=== PATIENT | female | born 1950 | race Caucasian/White ===

== ENCOUNTER 2017-04-29 11:00 | Inpatient (IN) | payer OTHER ==
[2017-04-29 11:06] VITALS: BMI 19.5
--- NOTE | 2017-04-29 12:59 | ED PDOC ---
Arrival/HPI - General Chief Complaint: Chest Pain Time Seen by Provider: 04/29/17 11:20 Historian: Patient - History of Present Illness Narrative History of Present Illness (Text): 04/29/17 12:58 A 67 year old female presents from [facility] emergency department after two sets of troponin were found to be elevated. Patient reports that initially went to [facility] emergency department for epigastric pain. Patient has a known history of gallstones. Patient had an US done, which showed gallstones. Patient reports having stress test and echo done 5 months ago, which states was normal. Patient denies any chest pain, shortness of breath or any other complaints at this time. Time/Duration: Other (today) Symptom Onset: Sudden Symptom Course: Unchanged Activities at Onset: Rest Past Medical History - Provider Review Nursing Documentation Reviewed: Yes - Infectious Disease Hx of Infectious Diseases: None - Tetanus Immunization Tetanus Immunization: Unknown - Reproductive Menopause: Yes - Cardiac Hx Cardiac Arrhythmia: (palpitations) Hx Hypertension: Yes - Pulmonary Hx Respiratory Disorders: No - Neurological Hx Neurological Disorder: No - HEENT Hx HEENT Disorder: No - Renal Hx Renal Disorder: No - Endocrine/Metabolic Hx Endocrine Disorders: No - Hematological/Oncological Hx Blood Transfusions: No Hx Blood Transfusion Reaction: No - Integumentary Hx Dermatological Disorder: No - Musculoskeletal/Rheumatological Hx Musculoskeletal Disorders: No - Gastrointestinal Hx Gastrointestinal Disorders: No - Genitourinary/Gynecological Hx Genitourinary Disorders: No - Psychiatric Hx Depression: No Hx Emotional Abuse: No Hx Physical Abuse: No Hx Substance Use: No - Past Surgical History Past Surgical History: No Previous - Anesthesia Hx Anesthesia Reactions: No Hx Malignant Hyperthermia: No - Suicidal Assessment Feels Threatened In Home Enviroment: No Family/Social History - Physician Review Nursing Documentation Reviewed: Yes Family/Social History: No Known Family HX Smoking Status: Never Smoked Hx Alcohol Use: No Hx Substance Use: No Hx Substance Use Treatment: No Allergies/Home Meds Allergies/Adverse Reactions: Allergies No Known Allergies Allergy (Verified 04/29/17 16:17) Home Medications: Home Meds Medication Instructions Recorded Confirmed Simvastatin [Zocor] 40 mg PO DAILY 05/27/16 04/29/17 Review of Systems - Physician Review All systems were reviewed & negative as marked: Yes - Review of Systems Respiratory: absent: SOB Cardiovascular: absent: Chest Pain Physical Exam Vital Signs Reviewed: Yes Vital Signs Temp Pulse Resp BP Pulse Ox 04/29/17 18:27 98.4 F 84 16 122/74 99 04/29/17 17:55 98.1 F 90 16 120/72 99 04/29/17 16:00 97.8 F 97 H 16 120/66 100 04/29/17 12:48 90 16 142/83 99 04/29/17 11:01 98.6 F 94 H 20 150/84 97 Temperature: Afebrile Blood Pressure: Normal Pulse: Regular Respiratory Rate: Normal Appearance: Positive for: Well-Appearing, Non-Toxic, Comfortable Pain Distress: None Mental Status: Positive for: Alert and Oriented X 3 - Systems Exam Head: Present: Atraumatic, Normocephalic Pupils: Present: PERRL Extroacular Muscles: Present: EOMI Conjunctiva: Present: Normal Mouth: Present: Moist Mucous Membranes Neck: Present: Normal Range of Motion Respiratory/Chest: Present: Clear to Auscultation, Good Air Exchange. No: Respiratory Distress, Accessory Muscle Use Cardiovascular: Present: Regular Rate and Rhythm, Normal S1, S2. No: Murmurs Abdomen: Present: Normal Bowel Sounds. No: Tenderness, Distention, Peritoneal Signs Back: Present: Normal Inspection Upper Extremity: Present: Normal Inspection. No: Cyanosis, Edema Lower Extremity: Present: Normal Inspection. No: Edema Neurological: Present: GCS=15, CN II-XII Intact, Speech Normal Skin: Present: Warm, Dry, Normal Color. No: Rashes Psychiatric: Present: Alert, Oriented x 3, Normal Insight, Normal Concentration Medical Decision Making ED Course and Treatment: 04/29/17 12:57 Impression: A 67 year old female with elevated troponin. Plan: -- EKG -- Reassess and disposition Prior Visits: Notes and results from previous visits were reviewed. Patient was last seen in the emergency department on 05/27/16 for evaluation of abdominal pain, nausea and vomiting. Progress Notes: EKG: Ordered, reviewed, and independently interpreted the EKG. Rate : 91 BPM Rhythm : NSR Interpretation : Normal intervals, normal axis - EKG Interpretation Interpreted by ED Physician: Yes Type: 12 lead EKG - Medication Orders Current Medication Orders: Acetaminophen (Tylenol 325mg Tab) 650 mg PO Q6H PRN PRN Reason: Fever >100.4 F Aspirin (Ecotrin) 81 mg PO DAILY [facility] Atorvastatin Calcium (Lipitor) 20 mg PO HS [facility] Nitroglycerin (Nitro-Bid 2% Oint) 1 ea TOP Q6H [facility] Last Admin: 04/29/17 15:00 Dose: 1 ea Ondansetron HCl (Zofran Inj) 4 mg IVP Q6H PRN PRN Reason: Nausea/Vomiting - Scribe Statement The provider has reviewed the documentation as recorded by the Merlyniblisandro Song Provider Scribe Attestation: All medical record entries made by the Scribe were at my direction and personally dictated by me. I have reviewed the chart and agree that the record accurately reflects my personal performance of the history, physical exam, medical decision making, and the department course for this patient. I have also personally directed, reviewed, and agree with the discharge instructions and disposition. Disposition/Present on Arrival - Present on Arrival Any Indicators Present on Arrival: No History of DVT/PE: No History of Uncontrolled Diabetes: No Urinary Catheter: No History of Decub. Ulcer: No History Surgical Site Infection Following: None - Disposition Have Diagnosis and Disposition been Completed?: Yes Diagnosis: Elevated troponin Disposition: HOSPITALIZED Disposition Time: 11:20 Condition: FAIR
[2017-04-29] MEDS: Nitroglycerin 2% Ointment Foilpak UD TOP SCH ×2 (15:00→21:51)
[2017-04-29 16:13] LABS: HEMOGLOBIN 9.3 g/dL (12.0-16.0); MEAN CELL VOLUME 82.4 fl (80.0-105.0); MEAN CORPUSCULAR HEMOGLOBIN 26.1 pg (25.0-35.0); MEAN CORPUSCULAR HGB CONC 31.6 g/dl (31.0-37.0); MEAN PLATELET VOLUME 8.4 fl (7.0-11.0); RBC 3.57 10^6/uL (3.5-6.1); WHITE BLOOD COUNT 5.5 10^3/ul (4.5-11.0)
[2017-04-29 16:27] LABS: ALB/GLOB RATIO 1.2 (1.1-1.8); ALBUMIN 3.6 g/dL (3.0-4.8); ALT/SGPT 29 U/L (7-56); AST/SGOT 34 U/L (14-36); BLOOD UREA NITROGEN 10 mg/dL (7-21); CALCIUM 8.9 mg/dL (8.4-10.5); GFR AFRICAN-AMERICAN > 60; GFR NON-AFRICAN AMERICAN > 60; HDL CHOLESTEROL 81 mg/dL (29-60)
[2017-04-29 16:38] LABS: LDL CHOLESTEROL 66 mg/dL (0-129); TROPONIN I 0.02 ng/mL
[2017-04-29] MEDS ORDERED: Influenza Vaccine 60 mcg/0.5 mL SYR (4YR UP) IM ONE (20:38)
[2017-04-29] MEDS ORDERED: Pneumococcal 23-Valent Vaccine IM ONE (20:38)
[2017-04-29 23:14] LABS: TROPONIN I < 0.01 ng/mL
--- NOTE | 2017-04-30 02:18 | HP ---
HISTORY OF PRESENT ILLNESS: This 67-year-old female was examined in the Emergency Room at the [facility]. This case was reviewed in detail with herself and Emergency Room Physician, Min Tapia. The patient presented to the [facility] Emergency Room earlier this morning. She complained of substernal chest discomfort, epigastric pain and was noted by their Emergency Room Physicians to have elevated troponin x2. According to the patient, she had a baseline troponin of 0.04 upon repeat it was elevated further to 0.07. Since the troponin level was rising and not stable, she was advised that she would need admission for further evaluation of possible subendocardial myocardial infarction. She denied admission to the Medical Center in [place], [place] and instead was brought to the [facility] ER for further evaluation of the above. Of note, the patient has a history of gallstones for which she is pursuing surgical consultation for elective removal with Dr. Yanez at the [facility] in [facility] [place], she has not scheduled an appointment nor a date for cholecystectomy. The patient states she has a longstanding history of hyperlipidemia and states she takes Zocor and Ecotrin as an outpatient. When I questioned her if she has any knowledge of myocardial infarction in her past, she denied this and states she has had no surgical history in her past as well. She has four childbirth histories, all natural vaginal delivery. ALLERGIES: DENIED ANY ALLERGIES TO MEDICATIONS WELL. REVIEW OF SYSTEMS: CONSTITUTIONAL: Reviewed. Denied fever or chills. HEENT: Head reviewed; denied headache or seizure. Eye reviewed; no change in visual acuity. Ear reviewed; no hearing loss. Throat reviewed; no swallowing difficulty. NECK: Reviewed. No stiffness. CARDIAC: Reviewed. As per HPI. There is questionable history of hypertension though she takes no antihypertensives. She denied any knowledge of myocardial infarction in her past. PULMONARY: No cough. No hemoptysis. GI: History of gallstones. : No dysuria. SKIN: No rash. VASCULAR: No claudication. PSYCHOLOGICAL: She is anxious. NEUROLOGICAL: Denied any knowledge of seizure or stroke. FAMILY HISTORY: Noncontributory. SOCIAL HISTORY: Denies smoking, drinking and IV drug misuse. OUTPATIENT MEDICATIONS: Zocor 40 mg p.o. daily and Ecotrin 81 mg p.o. daily. PHYSICAL EXAMINATION: VITAL SIGNS: The patient was in a normal sinus rhythm on the monitoring analyst. Temperature 98.6, respirations 20, pulse 94, blood pressure 150/84. Pulse ox 97%. HEENT: Head: Normocephalic, atraumatic. Eyes: No icterus. Ears: Clear. Throat: Noninjected. NECK: Supple. HEART: S1, S2. No pathological rubs, murmurs, gallops. LUNGS: Clear. ABDOMEN: Soft. EXTREMITIES: No edema. SKIN: Without rash. NEUROLOGICAL: Intact. PSYCHOLOGICAL: Alert. VASCULAR: Legs warm to touch. The EKG reportedly showed normal sinus rhythm with nonspecific ST-T wave changes. All labs are pending at present. [facility] apparently set one 0.04, set two 0.07. IMPRESSION: A 67-year-old female with rise in troponins, rule out subendocardial myocardial infarction, history of hyperlipidemia, history of hypertension, on no bp medication, also with history of gallstones. PLAN: As discussed with the patient, nursing and Emergency Room Physician, Dr. Min Tapia, will be to admit this patient to the Cardiac Unit. She will be ordered to have a consultation with Dr. Pb Jenkins from Cardiology regarding her chest pain and elevated troponin for further advisement. She will have a stat comprehensive metabolic panel, lipid panel, cardiac isoenzymes q. 8 x2 and a CBC stat. She is ordered to receive Ecotrin 81 mg p.o. daily, Lipitor 20 mg p.o. at bedtime, nitroglycerin 1 inch to chest wall q. 6 hours, Tylenol 650 mg p.o. q. 6 hours p.r.n. pain or temperature greater than 101 and Zofran 4 mg IV q. 6 hours p.r.n. nausea, vomiting. An EKG has been ordered stat. She is ordered to have a soft bland, heart-healthy diet and additional testing and workup will be entertained based on her clinical progress and cardiology evaluation. Greater than seventy five minutes was spent in the care of this patient today. All of the above was discussed in detail with the patient, nursing, Emergency Room Physicians. All questions were answered. The patient requires hospital stay for probable subendocardial myocardial infarction Angelika Mendoza MD [facility] # [id number] [facility]ALS[facility]
--- NOTE | 2017-04-30 09:31 | CON ---
DATE: 04/30/2017 CONSULTATION INDICATIONS: Chest pain. HISTORY OF PRESENT ILLNESS: This is a 67-year-old woman who has gallstones and hyperlipidemia and went to the [facility] emergency room yesterday complaining of midepigastric and mid substernal discomfort. Apparently, a second troponin was mildly elevated. She was sent to the [facility] Emergency Room, admitted to telemetry. She has had no further symptoms. She is completely asymptomatic at this time. There was no exertional chest pain reported. No shortness of breath, dyspnea on exertion, orthopnea, PND, syncope, presyncope, lightheadedness, dizziness, vertigo, palpitations, edema, claudication. No fever, chills, cough, sputum production, hemoptysis, nausea, vomiting, diarrhea, constipation or melena. PAST MEDICAL HISTORY: Notable for hyperlipidemia; gallstones, being evaluated for cholecystectomy and the recent cardiac evaluation in 11/2016, which included an echocardiogram and a stress test, both of which were apparently unremarkable, although I do not have the reports. There is no history of rheumatic fever, myocardial infarction, congestive heart failure, arrhythmia, stroke, TIA, diabetes or gout. MEDICATIONS AT THE TIME OF ADMISSION: Include aspirin and simvastatin. ALLERGIES: THERE ARE NO KNOWN MEDICATION ALLERGIES. FAMILY HISTORY: Noncontributory. REVIEW OF SYSTEMS: Ten-point review of systems otherwise unremarkable except as noted above. PHYSICAL EXAMINATION: GENERAL: She is a well-developed woman, lying in bed on telemetry, in no acute distress. VITAL SIGNS: Unremarkable. She is in sinus rhythm at 70 to 92 beats per minute. She is afebrile. Blood pressure 122/74, respirations 16 to 19, O2 sat 98 to 99% on room air. HEENT: Reveals no neck vein distention, thyromegaly or cardiomegaly. LUNGS: Lung michael clear throughout. HEART: Examination of the heart revealed normal first and second heart sounds. ABDOMEN: Soft. Bowel sounds present. No mass, organomegaly, tenderness, rebound or guarding. No CVA tenderness. No palpable abdominal aortic aneurysm. EXTREMITIES: Revealed no cyanosis, clubbing or edema. NEUROLOGIC: She is awake, alert and oriented. SKIN: Warm and dry. No rash or cellulitis. PSYCHIATRIC: Normal as to mood and affect. LABORATORY AND IMAGING: An EKG demonstrates regular sinus rhythm with mild nonspecific ST-wave changes. No significant change as compared to a prior EKG. CBC is notable for hemoglobin 9.3, hematocrit 29.4, white count normal, platelet count normal. Electrolytes are notable for a potassium of 3.5, creatinine 0.6, blood sugar 113. LFTs unremarkable. CK negative x2. Troponin negative x2. Total cholesterol 169, triglycerides 101, LDL 66, HDL 81. IMPRESSION: Radha Christensen is a 67-year-old woman with known gallstones, hyperlipidemia, recent negative stress test, admitted with midepigastric substernal discomfort, which was brief at the [facility] emergency room. The second troponin was mildly elevated apparently, but here the troponins x2 are unremarkable. Her EKG is also unremarkable. Her symptoms maybe related to gallstones. We should get the results of her prior stress test. She can be out of bed and ambulate. I will replace potassium. She is getting aspirin and Lipitor. We can discontinue nitro paste. She can ambulate. If there was no further chest pain, she can be discharged with followup with regular physicians. If the chest pain is recurrent, additional cardiac testing might include a nuclear stress test and/or cardiac catheterization. She will continue to undergo a gastrointestinal evaluation with a possibility of an elective cholecystectomy as well. Pb Jenkins MD [facility]
--- NOTE | 2017-04-30 10:38 | CARD ---
APPROVED REPORT EKG Measurement Heart [id number] <Conclusion> Normal sinus rhythm No change
[2017-04-30] MEDS ORDERED: Potassium Chloride 20 mEq ER Tab PO ONE (10:48)
[2017-04-30] MEDS ORDERED: Nitroglycerin 2% Ointment Foilpak UD TOP PRN ×2 (10:50→10:53)
[2017-04-30 12:36] LABS: IRON 14 ug/dL (45-180)
[2017-04-30 12:45] LABS: TOTAL IRON BINDING CAPACITY 352 ug/dL (265-497)
[2017-04-30 12:55] LABS: % IRON SATURATION 4 % (20-55)
[2017-04-30 17:05] LABS: FERRITIN 4.3 ng/mL
[2017-04-30 17:35] LABS: FOLATE > 20.0 ng/mL
[2017-04-30 18:08] VITALS: RESP 20
--- NOTE | 2017-04-30 22:00 | PN ---
DATE: 04/30/2017 SUBJECTIVE: This 67-year-old female was examined on the cardiac [place]. This case was reviewed in detail with herself, her nurse, Jennifer and Dr. Pb Jenkins from Cardiology. She was admitted with substernal chest pressure and elevated troponins. A concern of a subendocardial myocardial infarction was entertained. Her initial EKG showed a normal sinus rhythm with nonspecific ST-T wave changes. The patient has comorbidities of gallstones, atherosclerotic heart disease, hyperlipidemia, and the patient was noted on admission blood work to have an anemia for which she states she was told she had in the distant past, for which she states she never had any workup including endoscopy or colonoscopy despite the fact that she was told by her PMD to take iron supplements. She denies any knowledge of hematemesis or melena and remains highly anxious, but agreeable to cardiac workup at this time. monitoring engineer showed a normal sinus rhythm. PHYSICAL EXAMINATION: VITAL SIGNS: Temperature 98.4, respirations 18, pulse 89, and blood pressure 109/65. Pulse ox 98%. HEENT: Head: Normocephalic, atraumatic. Eyes: No icterus. Ears: Clear. Throat: Noninjected. NECK: Supple. HEART: Regular S1, S2. LUNGS: Clear. ABDOMEN: Soft. EXTREMITIES: No edema. SKIN: Without rash. NEUROLOGICAL: Intact. PSYCHOLOGICAL: Anxious. VASCULAR: Legs warm to touch. LABORATORY DATA: White count 5500, hemoglobin 9.3, hematocrit 29.4, and platelets 346,000. Sodium 137, potassium 3.5, chloride 105, bicarb 27, BUN 10, creatinine 0.6, and random blood sugar was 113. Iron level 14 low, TIBC 352, percent saturation 4%. Bilirubin 0.2, AST 34, ALT 29, and alk phos 43. Troponin 0.02. Cholesterol 169, LDL 66, HDL 81, and triglycerides 101. IMPRESSION: This is a 67-year-old female with history of hyperlipidemia, admitted with substernal chest pressure and elevated troponin, rule out unstable angina, rule out subendocardial myocardial infarction with history of anemia in her past for which she did not have any outpatient workup by her PMD and history of hyperlipidemia and gallstones and hypokalemia. PLAN: The plan as discussed with the patient, nursing, and Dr. Elkind will be to maintain the patient on the cardiac unit. She will be given a stat dose of potassium 40 mEq for hypokalemia and monitored for cardiac arrhythmia while having a repeat hemoglobin and hematocrit level in the a.m. as well as potassium level in the a.m. as well. She will continue on Ecotrin 81 mg p.o. daily, Lipitor 20 mg p.o. nightly, nitroglycerin 1 inch to chest wall q.4 hours p.r.n. accelerated hypertension if systolic blood pressure should be greater than 180 or diastolic blood pressure greater than 100. She is ordered to have a heart-healthy diet. A 2D echocardiogram had been ordered by Cardiology to rule out valvular heart disease as well as reduced ejection fraction. She will have a ferritin level, folic acid level, vitamin B12 level, and I will start the patient on ferrous gluconate 324 mg p.o. t.i.d. with Colace 100 mg p.o. daily and she has been advised to schedule outpatient endoscopy and colonoscopy with her primary care physician when able. All of the above was reviewed in detail with the patient, Cardiology, and nursing. Greater than 35 minutes was spent in the care management and review of x-rays, labs, and orders for this patient today. All questions were answered. Angelika Mendoza MD MTDD
[2017-04-30 22:56] VITALS: O2SAT 98
--- NOTE | 2017-05-01 07:52 | CP.PCM.PN ---
Subjective - Date & Time of Evaluation Date of Evaluation: 05/01/17 Time of Evaluation: 07:00 - Subjective Subjective: Stable on 2R. No CP or SOB. V/S noted. RSR. PE: Lungs: clear Cor: S1S2 Abd.: soft Ext.: no edema Neuro.: alert Echo done. Will review. Prelim: NL LV. Objective - Vital Signs/Intake and Output Vital Signs (last 24 hours): Temp Pulse Resp BP Pulse Ox 97.8 F 78 20 124/83 98 05/01/17 05:43 05/01/17 05:43 05/01/17 05:43 05/01/17 05:43 05/01/17 05:43 Intake and Output: 05/01/17 05/01/17 06:59 18:59 Intake Total 120 Output Total 0 Balance 120 - Medications Medications: Current Medications Acetaminophen (Tylenol 325mg Tab) 650 mg PO Q6H PRN PRN Reason: Fever >100.4 F Last Admin: 04/29/17 21:51 Dose: 650 mg Aspirin (Ecotrin) 81 mg PO DAILY [facility] Last Admin: 04/30/17 10:23 Dose: 81 mg Atorvastatin Calcium (Lipitor) 20 mg PO HS [facility] Last Admin: 04/30/17 21:07 Dose: 20 mg Docusate Sodium (Colace) 100 mg PO DAILY [facility] Ferrous Gluconate (Fergon) 324 mg PO TID [facility] Last Admin: 04/30/17 17:57 Dose: 324 mg Nitroglycerin (Nitro-Bid 2% Oint) 0 ea TOP Q4H PRN PRN Reason: accelerated hypertension Ondansetron HCl (Zofran Inj) 4 mg IVP Q6H PRN PRN Reason: Nausea/Vomiting - Labs Labs: 04/29/17 15:58 04/29/17 15:58 Assessment and Plan - Assessment and Plan (Free Text) Assessment: ELLEN and substernal pain episode Trops neg x 2 here H/O unremarkable nuclear stress test and echocardiogram 11/25 HLD Gall Stones Anemia Plan: OOB/Ambulate Replace K+ No further cardiac testing at this time, unless CP recurs. GI evaluation and possible GB surgery Anemia Evaluation.
[2017-05-01 08:39] LABS: HEMOGLOBIN 11.3 g/dL (12.0-16.0)
--- NOTE | 2017-05-01 09:00 | CARD ---
APPROVED REPORT EXAM: Two-dimensional and M-mode echocardiogram with Doppler and color Doppler. Other Information Quality : FairRhythm : INDICATION Chest Pain 2D DIMENSIONS IVSd1.0 (0.7-1.1cm)LVDd3.7 (3.9-5.9cm) PWd1.1 (0.7-1.1cm)LVDs2.2 (2.5-4.0cm) FS (%) 40.9 %LVEF (%)72.0 (>50%) M-Mode DIMENSIONS Left Atrium (MM)2.90 (2.5-4.0cm)Aortic Root2.90 (2.2-3.7cm) Aortic Cusp Exc.1.70 (1.5-2.0cm) Aortic Valve AoV Peak Pfyxjhab091.0cm/Dio Peak GR.11mmHg Mitral Valve MV E Inqsztiv78.2cm/sMV A Jwzixccw02.5cm/sE/A ratio1.3 TDI Lateral E' Peak V12.90cm/sMedial E' Peak V12.80cm/sE/Lateral E'7.5 E/Medial E'7.6 Tricuspid Valve TR Peak Ywxrebug576kd/sRAP [id number] Peak Gr.33mmHg [id number] LEFT VENTRICLE The left ventricle is normal size. There is normal left ventricular wall thickness. The left ventricular function is normal. The left ventricular ejection fraction is within the normal range. There is normal LV segmental wall motion. RIGHT VENTRICLE The right ventricle is normal size. ATRIA The left atrium size is normal. The right atrium size is normal. AORTIC VALVE The aortic valve is mildly calcified. MITRAL VALVE The mitral valve is normal in structure. Mitral regurgitation is mild. TRICUSPID VALVE The tricuspid valve is normal in structure. There is mild tricuspid regurgitation. PULMONIC VALVE The pulmonic valve is not well visualized. GREAT VESSELS The aortic root is normal in size. PERICARDIAL EFFUSION There is no pericardial effusion. <Conclusion> The left ventricle is normal size. There is normal left ventricular wall thickness. The left ventricular function is normal. Mitral regurgitation is mild. There is mild tricuspid regurgitation.
[2017-05-01 13:40] VITALS: BP 138/83; PULSE 81; TEMP 97.9
--- NOTE | 2017-05-02 13:15 | DS ---
FINAL DIAGNOSES: Atypical chest pain, elevated troponin levels from the [facility] Emergency Room of unclear significance, history of hyperlipidemia, iron deficiency anemia, gallstones. DISPOSITION: Home with followup with her PMD, Dr. Vamshi Mckenzie, within 48 hours. DISCHARGE DIET: 2 g sodium, heart-healthy. DISCHARGE MEDICATIONS: Ecotrin 81 mg p.o. daily, Zocor 40 mg p.o. daily, ferrous gluconate 324 mg p.o. t.i.d., Colace 100 mg p.o. daily. The patient was advised she will need endoscopy, colonoscopy, and repeat stress testing as an outpatient. The patient was seen by Dr. Jenkins from Cardiology and cleared for discharge, and advised by him she will need repeat stress testing before any consideration of cholecystectomy for gallstones. SUMMARY: This 67-year-old female, who initially presented to the [facility] Emergency Room in [place] was found to have rising troponin levels in the setting of substernal chest discomfort with no history of atherosclerotic heart disease in her past. The patient has been taking baby aspirin and Zocor as an outpatient. Because of her laboratory findings, she was advised to be admitted to the [facility]. She declined, came to our emergency room where she was admitted for the above issue. She was noted to have a normochromic normocytic anemia with iron deficiency indices. Initially, she was hypokalemic, and was replaced with oral potassium, and had a CPK #1 of 94 with a troponin of 0.02 and a CPK #2 of 80 with a troponin less than 0.01. She was seen in consultation by Dr. Pb Jenkins from Cardiology, who performed EKG, which showed normal sinus rhythm and he performed an echocardiogram that he reviewed, that showed normal left ventricular size, wall thickness, function with mild mitral regurgitation and tricuspid regurgitation. He cleared the patient for discharge with instructions as above, and at the time of discharge, vital signs were temperature 97.9, respirations 20, pulse 81, and blood pressure 138/83 with a pulse ox of 97%. Potassium 3.8, BUN 10, creatinine 0.6, percent saturation 4, hemoglobin 11.3, hematocrit 36.3. Her above instructions were reviewed in detail in the presence of her nurse, Saskia Lam, and hopefully, the patient will be compliant with instructions as outlined. Greater than 35 minutes was spent in the care of this patient today. All questions were answered. Angelika Mendoza MD MTDJasen
== END 2017-05-01 17:15 | disposition home or self-care (01) | DRG 313 ==
LOC: ED 11:00 → ERH 12:18 → 3RSO 18:54
PROVIDERS: ADMIT Internal Medicine; ATTEND Internal Medicine
DX: R07.89 Other chest pain (principal); K80.20 Calculus of gallbladder without cholecystitis without obstruction; D50.9 Iron deficiency anemia, unspecified; I10 Essential (primary) hypertension; I25.10 Atherosclerotic heart disease of native coronary artery without angina pectoris; I08.1 Rheumatic disorders of both mitral and tricuspid valves; E78.5 Hyperlipidemia, unspecified; E87.6 Hypokalemia; R74.8 Abnormal levels of other serum enzymes